=== PATIENT | male | born 1960 | race Hispanic/Latino ===

== ENCOUNTER 2021-09-18 15:28 | Emergency (ER) | payer BC ==
[~2021-09-18] VITALS: Ht 162.6 cm; Wt 77.1 kg
[2021-09-18 15:57] LABS: BASOPHILS % (AUTO) 0.9 % (0.0-5.0); EOSINOPHILS % (AUTO) 2.4 % (0.0-8.0); HEMATOCRIT 46.9 % (42-54); MEAN CORPUSCULAR HEMOGLOBIN 30.8 pg (27.0-33.0); MEAN CORPUSCULAR HGB CONC 33.9 g/dL (32.0-36.0); MEAN CORPUSCULAR VOLUME 90.9 fL (79-99); MONOCYTES % (AUTO) 7.9 % (3.0-13.0); NEUTROPHILS % (AUTO) 68.5 % (40.0-77.0); PLATELET COUNT (AUTO) 217 K/uL (130-400); RED BLOOD CELL COUNT(AUTO) 5.16 MIL/uL (4.50-6.20); RED CELL DISTRIBUTION WIDTH 12.1 % (11.0-15.5); WHITE BLOOD COUNT (AUTO) 10.5 K/uL (4.8-10.8)
[2021-09-18 15:58] LABS: APPEARANCE,URINE Clear (CLEAR); BILIRUBIN,URINE Negative (NEGATIVE); COLOR,URINE Yellow (YELLOW); GLUCOSE, URINE (UA) Negative (NEGATIVE); KETONES,URINE Negative (NEGATIVE); LEUKOCYTE ESTERASE ,URINE Negative (NEGATIVE); NITRATE,URINE Negative (NEGATIVE); OCCULT BLOOD,URINE Negative (NEGATIVE); PH,URINE 6.5 (5.0-8.0); PROTEIN,URINE Negative (NEGATIVE); UROBILINOGEN,URINE 0.2 mg/dL (0.2-1.0)
[2021-09-18] MEDS ORDERED: PROMETHAZINE HCL 25 MG/ML 1ML AMPULE IM ONE (16:00)
[2021-09-18] MEDS ORDERED: KETOROLAC 30MG VIAL (30MG/ML) IV ONE (16:00)
[2021-09-18] MEDS ORDERED: 0.9%NACL 1000ML 1,000 ML IV SCH (16:00)
[2021-09-18 16:12] LABS: CREATININE 1.3 mg/dL (0.5-1.5); POTASSIUM 4.1 mmol/L (3.5-5.1)
[2021-09-18 16:16] LABS: ALBUMIN 4.3 g/dL (3.5-5.0); BILIRUBIN,TOTAL 0.5 mg/dL (0.2-1.0); TOTAL PROTEIN, SERUM 8.2 g/dL (6.0-8.3)
[2021-09-18] MEDS ORDERED: IOHEXOL-350 75 ML VIAL IV ONE (16:28)
[2021-09-18] MEDS ORDERED: DICY20TA2 PO (17:24)
[2021-09-18] MEDS ORDERED: ONDA4TAB10 PO (17:24)
[2021-09-18] MEDS ORDERED: FAMO-136 PO (17:24)
[2021-09-18 18:42] VITALS: BP 135/74
== END 2021-09-18 18:43 | disposition home or self-care (01) ==
LOC: EDH 15:28
DX: K57.30 Diverticulosis of large intestine without perforation or abscess without bleeding (principal); K80.20 Calculus of gallbladder without cholecystitis without obstruction
CPT/HCPCS: 36415; 71045; 74177; 80053; 81003; 83690; 84484; 85025; 96361; 96372; 96374; 99284; J1885; J2550; J7030; Q9967

== ENCOUNTER 2022-08-24 16:25 | Inpatient (IN) | payer BC, OTHER ==
[~2022-08-24] VITALS: Ht 157.5 cm; Wt 72.4 kg
[~2022-08-24 16:25] MED LIST: DICY20TA2 PO; FAMO-136 PO; ONDA4TAB10 PO
[2022-08-24] MEDS ORDERED: MORPHINE 2 MG SYG IVP ONE (17:00)
[2022-08-24] MEDS ORDERED: ONDANSETRON 4MG INJ IVP ONE (17:00)
[2022-08-24] MEDS ORDERED: LACTATED RINGERS IV ONE (17:00)
[2022-08-24] MEDS ORDERED: ACETAMINOPHEN 325 MG TAB PO ONE (17:00)
[2022-08-24 17:15] LABS: BASOPHILS % (AUTO) 0.3 % (0.0-5.0); EOSINOPHILS % (AUTO) 0.3 % (0.0-8.0); HEMATOCRIT 37.5 % (42-54); LYMPHOCYTES % (AUTO) 8.9 % (21.0-51.0); MEAN CORPUSCULAR HEMOGLOBIN 31.2 pg (27.0-33.0); MEAN CORPUSCULAR HGB CONC 34.4 g/dL (32.0-36.0); MEAN CORPUSCULAR VOLUME 90.6 fL (79-99); MONOCYTES % (AUTO) 7.5 % (3.0-13.0); NEUTROPHILS % (AUTO) 80.6 % (40.0-77.0); PLATELET COUNT (AUTO) 114 K/uL (130-400); RED BLOOD CELL COUNT(AUTO) 4.14 MIL/uL (4.50-6.20); RED CELL DISTRIBUTION WIDTH 13.2 % (11.0-15.5); WHITE BLOOD COUNT (AUTO) 11.9 K/uL (4.8-10.8)
[2022-08-24 17:25] LABS: CREATININE 1.1 mg/dL (0.5-1.5); POTASSIUM 3.8 mmol/L (3.5-5.1)
[2022-08-24 17:29] LABS: ALBUMIN 2.6 g/dL (3.5-5.0); TOTAL PROTEIN, SERUM 6.6 g/dL (6.0-8.3)
[2022-08-24] MEDS ORDERED: ZOSYN 3.375GM +NS 50ML IVPB ONE (18:00)
[2022-08-24] MEDS ORDERED: IOHEXOL 350 MG/ML 100ML INFUS..BTL IV ONE (18:06)
[2022-08-24 18:24] LABS: INR 0.94 (0.85-1.15); PROTHROMBIN TIME 10.3 SEC (9.6-11.6)
[2022-08-24 18:25] LABS: PARTIAL THROMBOPLASTIN TIME 29.3 SEC (26.3-35.5)
[2022-08-24] MEDS ORDERED: MORPHINE 2 MG SYG IVP PRN (18:30)
[2022-08-24] MEDS ORDERED: ONDANSETRON 4MG INJ IV PRN (18:30)
[2022-08-24] MEDS ORDERED: NITROGLYCERIN 0.4 MG SL TAB SL PRN (18:30)
[2022-08-24 18:33] LABS: CHOLESTEROL 105 mg/dL (<200); HDL CHOLESTEROL 15 mg/dL (29-71); LDL DIRECT 63 mg/dL (0-99); TRIGLYCERIDES 167 mg/dL (30-200)
[2022-08-24 18:35] LABS: ALCOHOL, BLOOD < 3 mg/dL (0-10)
[2022-08-24 18:39] LABS: HEMOGLOBIN A1C 5.8 % (4.0-6.0)
[2022-08-24] MEDS: LACTATED RINGERS 1000ML 1,000 ML IV SCH (18:41)
[2022-08-24] MEDS: ZOSYN 3.375GM+NS 50ML 50 ML IVPB SCH (21:00)
[2022-08-24] MEDS: FAMOTIDINE 20MG VIAL IV SCH (21:02)
[2022-08-24] MEDS ORDERED: ALBUTEROL 0.083% 2.5 MG/3 ML INH IH PRN (22:00)
[2022-08-24] MEDS: AZITHROMYCIN 500MG+NS 250ML IVPB SCH (22:09)
[2022-08-25 00:35] VITALS: BP 142/74
[2022-08-25] MEDS: LACTATED RINGERS 1000ML 1,000 ML IV SCH ×3 (04:01→23:22)
[2022-08-25] MEDS: ZOSYN 3.375GM+NS 50ML 50 ML IVPB SCH ×3 (04:02→20:23)
[2022-08-25 04:19] VITALS: BP 125/60
[2022-08-25 06:14] LABS: BASOPHILS % (AUTO) 0.3 % (0.0-5.0); EOSINOPHILS % (AUTO) 0.2 % (0.0-8.0); LYMPHOCYTES % (AUTO) 12.9 % (21.0-51.0); MEAN CORPUSCULAR HEMOGLOBIN 30.9 pg (27.0-33.0); MEAN CORPUSCULAR HGB CONC 34.1 g/dL (32.0-36.0); MEAN CORPUSCULAR VOLUME 90.7 fL (79-99); NEUTROPHILS % (AUTO) 76.8 % (40.0-77.0); PLATELET COUNT (AUTO) 130 K/uL (130-400); RED BLOOD CELL COUNT(AUTO) 3.75 MIL/uL (4.50-6.20); RED CELL DISTRIBUTION WIDTH 13.2 % (11.0-15.5); WHITE BLOOD COUNT (AUTO) 10.6 K/uL (4.8-10.8)
[2022-08-25 06:33] LABS: ALBUMIN 2.2 g/dL (3.5-5.0); CREATININE 1.1 mg/dL (0.5-1.5); MAGNESIUM 1.9 mg/dL (1.80-2.40); TOTAL PROTEIN, SERUM 5.8 g/dL (6.0-8.3)
[2022-08-25 08:00] VITALS: BP 114/60
[2022-08-25] MEDS: FAMOTIDINE 20MG VIAL IV SCH ×2 (08:40→20:33)
[2022-08-25 12:00] VITALS: BP 131/62
[2022-08-25 16:00] VITALS: BP 128/66
[2022-08-25 20:00] VITALS: BP 131/69
[2022-08-25] MEDS: AZITHROMYCIN 500MG+NS 250ML IVPB SCH (20:24)
[2022-08-26] VITALS (22 sets, daily range): BP systolic 109–153; BP diastolic 55–96
[2022-08-26] MEDS: ZOSYN 3.375GM+NS 50ML 50 ML IVPB SCH ×3 (04:55→20:52)
[2022-08-26 05:15] LABS: ALBUMIN 2.1 g/dL (3.5-5.0); CREATININE 1.2 mg/dL (0.5-1.5); POTASSIUM 3.8 mmol/L (3.5-5.1); TOTAL PROTEIN, SERUM 5.8 g/dL (6.0-8.3)
[2022-08-26] MEDS ORDERED: MAGNESIUM 2GM PREMIX 50ML 0 ML IV ONE (06:09)
[2022-08-26] MEDS ORDERED: BUPIVACAINE/PF 0.25% 10ML VIAL IJ ONE (06:30)
[2022-08-26] MEDS ORDERED: LIDOCAINE HCL 1% 20 ML VIAL ONE (06:30)
[2022-08-26] MEDS: FAMOTIDINE 20MG VIAL IV SCH ×2 (09:00→20:52)
[2022-08-26] MEDS ORDERED: CILO100T3 PO (09:14)
[2022-08-26] MEDS ORDERED: ATOR-2 PO (09:14)
[2022-08-26] MEDS ORDERED: MIDAZOLAM HCL 1 MG/ML 2ML VIAL ONE (09:18)
[2022-08-26] MEDS ORDERED: ROCURONIUM 10MG/1ML SYR 10 MG/ML ML ONE (09:24)
[2022-08-26] MEDS ORDERED: PROPOFOL 10 MG/ML 20ML VIAL IV ONE (09:24)
[2022-08-26] MEDS ORDERED: FENTANYL CITRATE PF 50 MCG/1 ML 2ML VIAL ONE ×2 (09:25→10:25)
[2022-08-26] MEDS ORDERED: MEPERIDINE-PF 25 MG/ML SYG ONE (10:24)
[2022-08-26] MEDS ORDERED: NEOSTIGMINE 5MG/5ML SYR IV ONE (10:25)
[2022-08-26] MEDS ORDERED: ONDANSETRON 4MG INJ ONE (10:25)
[2022-08-26] MEDS ORDERED: GLYCOPYRROLATE 1 MG/5 ML SYRINGE ONE (10:25)
[2022-08-26] MEDS: LACTATED RINGERS 1000ML 1,000 ML IV SCH ×2 (10:30→20:30)
[2022-08-26] MEDS ORDERED: PHENYLEPHRINE HCL 10 MG/ML 1ML VIAL IV ONE (10:37)
[2022-08-26] MEDS: AZITHROMYCIN 500MG+NS 250ML IVPB SCH (20:52)
[2022-08-27] VITALS (7 sets, daily range): BP systolic 122–141; BP diastolic 57–77
[2022-08-27] MEDS: ZOSYN 3.375GM+NS 50ML 50 ML IVPB SCH ×3 (05:26→19:35)
[2022-08-27] MEDS: LACTATED RINGERS 1000ML 1,000 ML IV SCH ×2 (05:37→16:30)
[2022-08-27 08:32] LABS: BASOPHILS % (AUTO) 0.3 % (0.0-5.0); EOSINOPHILS % (AUTO) 0.5 % (0.0-8.0); LYMPHOCYTES % (AUTO) 14.2 % (21.0-51.0); MEAN CORPUSCULAR HEMOGLOBIN 31.3 pg (27.0-33.0); MEAN CORPUSCULAR HGB CONC 33.6 g/dL (32.0-36.0); MONOCYTES % (AUTO) 6.8 % (3.0-13.0); NEUTROPHILS % (AUTO) 77.5 % (40.0-77.0); PLATELET COUNT (AUTO) 187 K/uL (130-400); RED BLOOD CELL COUNT(AUTO) 3.55 MIL/uL (4.50-6.20); RED CELL DISTRIBUTION WIDTH 12.7 % (11.0-15.5); WHITE BLOOD COUNT (AUTO) 10.8 K/uL (4.8-10.8)
[2022-08-27 08:59] LABS: BILIRUBIN,DIRECT 0.2 mg/dL (0.0-0.3); POTASSIUM 3.6 mmol/L (3.5-5.1); TOTAL PROTEIN, SERUM 5.7 g/dL (6.0-8.3)
[2022-08-27] MEDS: FAMOTIDINE 20MG VIAL IV SCH ×2 (08:59→19:35)
[2022-08-27 09:14] LABS: ALBUMIN 2.1 g/dL (3.5-5.0)
[2022-08-27 09:18] LABS: CREATININE 1.1 mg/dL (0.5-1.5)
[2022-08-27] MEDS ORDERED: AMOX875T2 PO (17:30)
[2022-08-27] MEDS: AZITHROMYCIN 500MG+NS 250ML IVPB SCH (19:35)
[2022-08-27] MEDS ORDERED: NON-FORMULARY MEDICATION 1 EACH (Atorvastatin Calcium 80 MG) PO SCH (21:00)
[2022-08-28] MEDS: LACTATED RINGERS 1000ML 1,000 ML IV SCH (01:33)
[2022-08-28 04:20] VITALS: BP 137/75
[2022-08-28 04:59] LABS: BASOPHILS % (AUTO) 0.3 % (0.0-5.0); EOSINOPHILS % (AUTO) 0.8 % (0.0-8.0); LYMPHOCYTES % (AUTO) 14.5 % (21.0-51.0); MEAN CORPUSCULAR HEMOGLOBIN 31.1 pg (27.0-33.0); MEAN CORPUSCULAR HGB CONC 34.8 g/dL (32.0-36.0); MEAN CORPUSCULAR VOLUME 89.2 fL (79-99); MONOCYTES % (AUTO) 8.3 % (3.0-13.0); NEUTROPHILS % (AUTO) 75.2 % (40.0-77.0); PLATELET COUNT (AUTO) 241 K/uL (130-400); RED CELL DISTRIBUTION WIDTH 12.5 % (11.0-15.5); WHITE BLOOD COUNT (AUTO) 11.8 K/uL (4.8-10.8)
[2022-08-28 05:09] LABS: ALBUMIN 2.2 g/dL (3.5-5.0); BILIRUBIN,DIRECT 0.3 mg/dL (0.0-0.3); CREATININE 1.2 mg/dL (0.5-1.5); POTASSIUM 3.9 mmol/L (3.5-5.1); TOTAL PROTEIN, SERUM 6.1 g/dL (6.0-8.3)
[2022-08-28] MEDS: ZOSYN 3.375GM+NS 50ML 50 ML IVPB SCH ×2 (05:09→12:49)
[2022-08-28 08:00] VITALS: BP 132/75
[2022-08-28] MEDS ORDERED: CILOSTAZOL 100 MG TAB PO SCH (09:00)
[2022-08-28] MEDS: FAMOTIDINE 20MG VIAL IV SCH (09:33)
[2022-08-28 12:00] VITALS: BP 136/71
== END 2022-08-28 16:30 | disposition home or self-care (01) | DRG 417 ==
LOC: EDH 16:25 → EDHIP 16:26 → 4DH 08-25 00:10
PROVIDERS: ADMIT Hospitalist; ATTEND Hospitalist
PROC: 0FT44ZZ Resection of Gallbladder, Percutaneous Endoscopic Approach (ICD-10-PCS; principal; 2022-08-26 09:49)
DX: K80.12 Calculus of gallbladder with acute and chronic cholecystitis without obstruction (principal); J18.9 Pneumonia, unspecified organism; K82.1 Hydrops of gallbladder; Z20.822 Contact with and (suspected) exposure to COVID-19; K82.A1 Gangrene of gallbladder in cholecystitis; K66.0 Peritoneal adhesions (postprocedural) (postinfection); K57.90 Diverticulosis of intestine, part unspecified, without perforation or abscess without bleeding; E78.5 Hyperlipidemia, unspecified; F17.210 Nicotine dependence, cigarettes, uncomplicated
CPT/HCPCS: 36415; 71045; 74177; 74181; 80048; 80053; 80061; 80076; 82248; 83036; 83605; 83690; 83735; 84145; 85025; 85610; 85730; 87040; 87635; 93005; 93970; G0378; J0456; J2175; J2250; J2370; J2405; J2543; J2704; J2710; J3010; J3475; J3490; J7030; J7120; Q9967

== ENCOUNTER → 2022-12-13 | Outpatient (CLI) | payer OTHER ==
[~2022-12-13] MED LIST changes: +AMOX875T2 PO; +ATOR-2 PO; +CILO100T3 PO; -DICY20TA2 PO; -FAMO-136 PO; -ONDA4TAB10 PO
[2022-12-13 12:14] LABS: POTASSIUM 4.1 mmol/L (3.5-5.1)
== END | disposition home or self-care (01) ==
LOC: LAB 09:57
PROVIDERS: ATTEND Internal Medicine Cardiovascular Disease
DX: I10 Essential (primary) hypertension (principal)
CPT/HCPCS: 36415; 80048

== ENCOUNTER 2023-06-09 09:09 | Day surgery (SDC) | payer OTHER ==
[2023-06-07 09:57] VITALS: BP 144/72; PULSE 64; RESP 17
[2023-06-07 10:01] LABS: BASOPHILS # (AUTO) 0.08 K/uL (0.00-0.20); BASOPHILS % (AUTO) 1.1 % (0.0-5.0); EOSINOPHILS # (AUTO) 0.27 K/uL (0.00-0.70); EOSINOPHILS % (AUTO) 3.6 % (0.0-8.0); HEMATOCRIT 47.6 % (42-54); IMMATURE GRANULOCYTE ABSOLUTE 0.03 K/uL (0-1); LYMPHOCYTES # (AUTO) 2.7 K/uL (1.0-4.8); MEAN CORPUSCULAR HEMOGLOBIN 31.5 pg (27.0-33.0); MEAN CORPUSCULAR HGB CONC 33.2 g/dL (32.0-36.0); MONOCYTES # (AUTO) 0.6 K/uL (0.1-1.0); NEUTROPHILS # (AUTO) 3.8 K/uL (1.8-7.7); NEUTROPHILS % (AUTO) 50.9 % (40.0-77.0); PLATELET COUNT (AUTO) 230 K/uL (130-400); RED BLOOD CELL COUNT(AUTO) 5.01 MIL/uL (4.50-6.20); RED CELL DISTRIBUTION WIDTH 12.8 % (11.0-15.5); WHITE BLOOD COUNT (AUTO) 7.5 K/uL (4.8-10.8)
[2023-06-07 10:09] LABS: POTASSIUM 4.4 mmol/L (3.5-5.1)
[2023-06-07 10:09] LABS: APPEARANCE,URINE CLEAR (CLEAR); BILIRUBIN,URINE NEGATIVE (NEGATIVE); COLOR,URINE LIGHT-YELLOW (YELLOW); GLUCOSE, URINE (UA) NEGATIVE (NEGATIVE); KETONES,URINE NEGATIVE (NEGATIVE); LEUKOCYTE ESTERASE ,URINE NEGATIVE Leu/uL (NEGATIVE); NITRATE,URINE NEGATIVE (NEGATIVE); PH,URINE 5.5 (5.0-8.0); PROTEIN,URINE NEGATIVE (NEGATIVE); UROBILINOGEN,URINE 0.2 mg/dL (0.2-1.0)
[2023-06-07 10:16] LABS: INR < 0.93 (0.85-1.15)
[2023-06-07 10:37] LABS: ADD UA MICROSCOPIC YES
[2023-06-07 10:39] LABS: WBC,URINE 0-1 /HPF (0-1)
[2023-06-07 10:40] LABS: B-TYPE NATRIURETIC PEPTIDE 6 pg/mL (0-100)
[~2023-06-09] VITALS: Ht 157.5 cm; Wt 74.4 kg
[2023-06-09] VITALS (8 sets, daily range): BP systolic 109–139; BP diastolic 59–78; PULSE 61–83; RESP 15–17
[~2023-06-09 09:09] MED LIST changes: +AEC81 PO; -AMOX875T2 PO; -ATOR-2 PO; +ATOR10 PO; +CLOP75TA32 PO
[2023-06-09] MEDS ORDERED: 0.9%NACL 1000ML 1,000 ML IV ONE (10:17)
[2023-06-09] MEDS ORDERED: SODIUM BICARB 50MEQ 50ML VIAL 50 ML ONE (14:26)
[2023-06-09] MEDS ORDERED: LIDOCAINE HCL 400MG/20ML VIAL ONE (14:26)
[2023-06-09] MEDS ORDERED: HEPARIN 10,000 UNIT/10ML (1,000 UNIT/ML) VIAL ONE (14:26)
[2023-06-09] MEDS ORDERED: NITROGLYCERIN 50MG VIAL ONE (14:26)
[2023-06-09] MEDS ORDERED: IOHEXOL-350 75 ML VIAL IV ONE (14:26)
[2023-06-09] MEDS ORDERED: MEPERIDINE-PF 25 MG/ML SYG ONE ×2 (14:47→15:07)
[2023-06-09] MEDS ORDERED: MIDAZOLAM HCL 1 MG/ML 2ML VIAL ONE ×2 (14:47→15:07)
[2023-06-09] MEDS ORDERED: NICARDIPINE 25MG INJ IV ONE (14:47)
[2023-06-09] MEDS ORDERED: 0.9%NACL 1000ML 1,000 ML IV SCH (15:30)
== END 2023-06-09 17:45 | disposition home or self-care (01) ==
LOC: DAH 09:09
PROVIDERS: ATTEND Internal Medicine Cardiovascular Disease
DX: R93.1 Abnormal findings on diagnostic imaging of heart and coronary circulation (principal); I74.09 Other arterial embolism and thrombosis of abdominal aorta; I73.89 Other specified peripheral vascular diseases; E78.5 Hyperlipidemia, unspecified; Z90.49 Acquired absence of other specified parts of digestive tract; Z80.9 Family history of malignant neoplasm, unspecified; Z87.891 Personal history of nicotine dependence; Z79.82 Long term (current) use of aspirin; Z72.89 Other problems related to lifestyle; Z79.899 Other long term (current) drug therapy
CPT/HCPCS: 80048; 83880; 85025; 85610; 85730; 81001; 36415; 71045; 93005; 93458; C1769; C1894; Q9965; J3490 ×4; J7030; J1644; J2250 ×2; J2175 ×2; A4215; A4222; A4221; A4663; A4216; A4606; A4223 ×3; 99156; 99157; Q9967